=== PATIENT | female | born 1965 | race Caucasian/White ===

== ENCOUNTER → 2016-10-01 | Outpatient (CLI) | payer OTHER ==
--- NOTE | 2016-10-01 10:45 | RAD ---
Indication back pain. AP and lateral views of the lumbar spine were obtained as well as a coned view targeted to the lumbosacral junction. Vertebral height is well maintained. There is no significant disc space narrowing at any level. An acute finding is not seen. Significant degenerative changes are not apparent given the patient's age. Small osteophytes are noted involving L2,L3 and L4. IMPRESSION: No acute or significant finding seen in the lumbar spine on plain films
--- NOTE | 2016-10-01 10:46 | RAD ---
Indication shoulder pain. Chronic. Internally and externally rotated views of the left shoulder as well as a Y view were obtained. No bony abnormality is seen.
== END | disposition home or self-care (01) ==
LOC: DXRAD 10:10
DX: M25.78 Osteophyte, vertebrae (principal); M79.7 Fibromyalgia; M25.512 Pain in left shoulder
CPT/HCPCS: 72100; 73030

== ENCOUNTER → 2016-10-02 | Outpatient (CLI) | payer OTHER ==
[2016-10-02 15:21] LABS: BASO # 0.1 x10^3/uL (0.0-0.2); BASO % 1 % (0-3); EOS # 0.2 x10^3/uL (0.0-0.7); EOS % 2 % (0-3); HEMATOCRIT 45.9 % (36.0-47.0); HEMOGLOBIN 16.1 g/dL (12.0-15.5); LYMPH # 2.2 x10^3/uL (1.0-4.8); LYMPH % 28 % (24-48); MEAN CORPUSCULAR HEMOGLOBIN 35 pg (25-35); MEAN CORPUSCULAR HGB CONC 35 g/dL (31-37); MEAN CORPUSCULAR VOLUME 99 fL (79-100); MONO # 0.5 x10^3/uL (0.0-1.1); MONO % 7 % (0-9); NEUT # 4.8 x10^3uL (1.8-7.7); NEUT % 62 % (31-73); PLATELET COUNT 279 x10^3/uL (140-400); RED BLOOD COUNT 4.65 x10^6/uL (3.50-5.40); RED CELL DISTRIBUTION WIDTH 12.6 % (11.5-14.5); WHITE BLOOD COUNT 7.7 x10^3/uL (4.0-11.0)
[2016-10-02 15:28] LABS: CALCIUM 9.1 mg/dL (8.5-10.1); CREATININE 0.9 mg/dL (0.6-1.0); GFR 65.5; POTASSIUM 4.7 mmol/L (3.5-5.1)
--- NOTE | 2016-10-03 06:09 | EKG ---
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
== END | disposition home or self-care (01) ==
LOC: LAB 14:35
PROVIDERS: ATTEND Surgery
DX: Z01.812 Encounter for preprocedural laboratory examination (principal)
CPT/HCPCS: 36415; 80048; 85027; 93005

== ENCOUNTER 2016-10-19 15:59 | Emergency (ER) | payer OTHER ==
[~2016-10-19] VITALS: Ht 170.2 cm; Wt 79.8 kg
[2016-10-19 16:10] VITALS: BP 143/100
--- NOTE | 2016-10-19 16:34 | PHYS DOC ---
Adult General Chief Complaint Chief Complaint: ABDOMINAL PAIN HPI HPI This 50-year-old lady presents with her incision dehiscing today. She is 11 days postop from a partial colectomy for polyps. She has been noticing noticing some redness and tenderness around the incision. She has noted swelling at the inferior end of the incision. Last night the incision began draining and it is continued to drain today so she presents now for evaluation. She called her surgeon today who sent her to our emergency department. Review of Systems Review of Systems Constitutional: Denies fever or chills [] Eyes: Denies change in visual acuity, redness, or eye pain [] HENT: Denies nasal congestion or sore throat [] Respiratory: Denies cough or shortness of breath [] Cardiovascular: No additional information not addressed in HPI [] GI: Denies , nausea, vomiting, bloody stools or diarrhea but she has had pain around the incision. : Denies dysuria or hematuria [] Musculoskeletal: Denies back pain or joint pain [] Integument: She has pain and redness around the incision Neurologic: Denies headache, focal weakness or sensory changes [] Endocrine: Denies polyuria or polydipsia [] Allergies Allergies Allergies Coded Allergies Type Severity Reaction Last Updated Verified No Known Drug Allergies 10/19/16 No Physical Exam Physical Exam Constitutional: Well developed, well nourished, no acute distress, non-toxic appearance. [] HENT: Normocephalic, atraumatic, bilateral external ears normal, oropharynx moist, no oral exudates, nose normal. [] Eyes: PERRLA, EOMI, conjunctiva normal, no discharge. [] Neck: Normal range of motion, no tenderness, supple, no stridor. [] Cardiovascular:Heart rate regular rhythm, no murmur [] Lungs & Thorax: Bilateral breath sounds clear to auscultation [] Abdomen: Bowel sounds normal, soft, no tenderness, no masses, no pulsatile masses. There is a midline incision below the umbilicus which measures about 14 cm and at the center of this is some drainage of sangopurulent fluid. Skin: Is some erythema around the suture line with some sangopurulent fluid drainage. Back: No tenderness, no CVA tenderness. [] Extremities: No tenderness, no cyanosis, no clubbing, ROM intact, no edema. [] Neurologic: Alert and oriented X 3, normal motor function, normal sensory function, no focal deficits noted. [] Psychologic: Affect normal, judgement normal, mood normal. [] EKG EKG [] Radiology/Procedures Radiology/Procedures [] Impressions: Wound abscess Course & Med Decision Making Course & Med Decision Making I spoke with Dr. Marrero and he will see the patient tomorrow in clinic he asked that we give the patient 1 g of Rocephin IM. [] Dragon Disclaimer Dragon Disclaimer This chart was dictated in whole or in part using Voice Recognition software in a busy, high-work load, and often noisy Emergency Department environment. It may contain unintended and wholly unrecognized errors or omissions. Departure Departure: Referrals: TAMMY GEORGE MD (PCP) AN ASTUDILLO MD Oct 19, 2016 16:34
[2016-10-19] MEDS ORDERED: cefTRIAXone IM 1 GM VIAL IM ONE (17:30)
== END 2016-10-19 17:32 | disposition home or self-care (01) ==
LOC: ER 15:59
DX: T81.4XXA Infection following a procedure, initial encounter (principal); K65.1 Peritoneal abscess; Z90.49 Acquired absence of other specified parts of digestive tract
CPT/HCPCS: 96372; 99283; J0696

== ENCOUNTER → 2020-03-12 | Outpatient (CLI) | payer OTHER ==
[~2020-03-12] MED LIST: DICY20TA3 PO; FOLI20CA PO; METO-239 PO; TRAZ-120 PO
== END ==
LOC: LAB 13:20
PROVIDERS: ATTEND Nurse Anesthetist, Certified Registered
DX: Z01.812 Encounter for preprocedural laboratory examination (principal); Z20.828 Contact with and (suspected) exposure to other viral communicable diseases; R10.9 Unspecified abdominal pain
CPT/HCPCS: U0003

== ENCOUNTER → 2020-03-15 | Day surgery (SDC) | payer OTHER ==
[~2020-03-15] MED LIST changes: +ACETAMINOPHEN 325 MG TABLET PO PRN; +ALBUTEROL SULFATE 2.5 MG/3 ML NEBU. NEB PRN; +ATROPINE 0.5 MG/5 ML DISP.SYRIN. IV PRN; +IV RINGERS SOLUTION,LACTATED 1,000 ML IV SCH; +MIDAZOLAM HCL PF 2 MG/2 ML VIAL. IV PRN; +ONDANSETRON PF 4 MG/2 ML VIAL. IV PRN; +PHENOL ORAL SPRAY 177ML BOTTLE. MM PRN; +PROPOFOL 10,000 MCG/ML (20ML) VIAL IV ONE; +diphenhydrAMINE 50 MG/ML VIAL IV PRN
[2020-03-15 14:14] VITALS: BP 191/99
== END | disposition home or self-care (01) ==
LOC: SURG 11:03
PROVIDERS: ATTEND Internal Medicine Gastroenterology
DX: Z12.11 Encounter for screening for malignant neoplasm of colon (principal); R10.13 Epigastric pain; K22.2 Esophageal obstruction; K29.00 Acute gastritis without bleeding; K63.5 Polyp of colon; K64.0 First degree hemorrhoids; K57.30 Diverticulosis of large intestine without perforation or abscess without bleeding; M79.7 Fibromyalgia; M25.78 Osteophyte, vertebrae; I10 Essential (primary) hypertension; K21.9 Gastro-esophageal reflux disease without esophagitis; Z86.010 Personal history of colon polyps; Z90.49 Acquired absence of other specified parts of digestive tract; Z79.899 Other long term (current) drug therapy; Z72.89 Other problems related to lifestyle; Z98.0 Intestinal bypass and anastomosis status; Z98.890 Other specified postprocedural states
CPT/HCPCS: 43239; 45380; J2704; J7120; 88305; 88342

== ENCOUNTER → 2020-05-15 | Outpatient (CLI) | payer OTHER ==
[2020-03-15 14:14] VITALS: BP 191/99
[~2020-05-15] MED LIST changes: -ACETAMINOPHEN 325 MG TABLET PO PRN; -ALBUTEROL SULFATE 2.5 MG/3 ML NEBU. NEB PRN; -ATROPINE 0.5 MG/5 ML DISP.SYRIN. IV PRN; -IV RINGERS SOLUTION,LACTATED 1,000 ML IV SCH; -MIDAZOLAM HCL PF 2 MG/2 ML VIAL. IV PRN; -ONDANSETRON PF 4 MG/2 ML VIAL. IV PRN; -PHENOL ORAL SPRAY 177ML BOTTLE. MM PRN; -PROPOFOL 10,000 MCG/ML (20ML) VIAL IV ONE; -diphenhydrAMINE 50 MG/ML VIAL IV PRN
--- NOTE | 2020-05-16 02:52 | RAD ---
INDICATION: Reason: CHRONIC RLQ/PELVIC PAIN / Spl. Instructions: / History: . Last menstrual period was DVT. COMPARISON: None available. TECHNIQUE: Transabdominal and endovaginal sonography was performed FINDINGS: The uterus measures 6.2 x 5.3 x 3.8 cm. The endometrium measures 0.3 cm on endovaginal images. Ther e is no focal myometrial abnormality The right ovary was not visualized. The left ovary measures 2.8 x 1.9 x 1.5 cm on endovaginal images. No definite left adnexal mass. Chirag w seen to the left ovary. There is no free fluid. IMPRESSION: 1. Right ovary is not seen. 2. Normal sonographic survey of the uterus and left ovary. Electronically signed by: Ziggy Rizvi MD (05/16/2020 2:50 AM) BORIS
== END ==
LOC: US 12:58
PROVIDERS: ATTEND Family Medicine
DX: R10.31 Right lower quadrant pain (principal); G89.29 Other chronic pain
CPT/HCPCS: 76830; 76856

== ENCOUNTER → 2020-07-11 | Outpatient (CLI) | payer OTHER ==
[2020-03-15 14:14] VITALS: BP 191/99
--- NOTE | 2020-07-11 11:35 | RAD ---
EXAM: Abdomen sonogram. HISTORY: Pain. TECHNIQUE: Sonographic imaging of the abdomen was performed. COMPARISON: None. FINDINGS: The liver is upper normal in size. No focal hepatic lesion is seen. The gallbladder is unre markable. The pancreas is unremarkable. The inferior vena cava is patent. There are multiple simple a ppearing right renal cysts, the largest of which measures 6.1 cm. The right renal parenchyma is echog enic. The right kidney measures 12.4 cm [id number]. IMPRESSION: 1. Multiple simple appearing right renal cyst. Follow-up is not routinely performed for simple cysts. There is echogenic renal parenchymal which may be due to imaging technique or medical renal disease. 2. Otherwise, unremarkable abdomen sonogram. Electronically signed by: Karely Carter MD (07/11/2020 11:33 AM) [id number]
== END ==
LOC: US 10:56
PROVIDERS: ATTEND Surgery
DX: N28.1 Cyst of kidney, acquired (principal)
CPT/HCPCS: 76705